=== PATIENT | female | born 1975 | race Caucasian/White ===

== ENCOUNTER 2018-07-28 10:26 | Emergency (ER) | payer OTHER, SELFPAY ==
[2018-07-28 10:31] VITALS: BP 132/82; PULSE 63; RESP 16; TEMP 36.6; O2SAT 100
--- NOTE | 2018-07-28 11:01 | ED_ITS ---
HPI - Chest Pain General Chief Complaint: Chest Pain Stated Complaint: tightness in chest Time Seen by Provider: 07/28/18 10:49 Source: patient Mode of arrival: ambulatory Limitations: no limitations History of Present Illness HPI narrative: patient is a 42-year-old female presents with a variety of complaints. She broke her left ankle in June while over in [place]. She was placed in a cast is for number of weeks. She was actually placed on Lovenox shots for the airplane ride back to [facility]. She has been going to physical therapy. She did not receive any surgery. His physical therapy noticed that her foot was slightly cooler. she feels like her left leg is cool from her knee to her foot. She does have some numbness and tingling. She has been using crutches. His she has also been having some chest pain off and on for about 1 week. It last for about 3-5 minutes. She feels like it is tight. Thought that it might be from crutches from her foot. She denies any shortness of breath. Related Data Home Medications Medication Instructions Recorded Confirmed Collagen 1 dose PO DAILY 07/28/18 07/28/18 Allergies Allergy/AdvReac Type Severity Reaction Status Date / Time No Known Allergies Allergy Uncoded 09/14/17 12:14 Review of Systems Review of Systems ROS Unobtainable: All systems reviewed & are unremarkable except as noted in HPI and below Cardiovascular Reports chest pain, Denies irregular heart rhythm, Denies lightheadedness, Denies palpitations, Denies dyspnea, Denies dyspnea on exertion and Denies orthopnea Respiratory Denies cough, Denies dyspnea, Denies dyspnea on exertion and Denies wheezing Gastrointestinal Gastrointestinal: Denies abdominal pain, Denies change in bowel habits, Denies diarrhea, Denies nausea and Denies vomiting Musculoskeletal Reports as per HPI, Denies back pain, Denies muscle weakness, Denies numbness and Denies tingling Integumentary/Breasts Denies pruritus, Denies erythema, Denies rash and Denies wounds Neurologic Denies numbness and Denies tingling Endocrine Denies palpitations Allergic/Immunologic Denies wheezing PFSH Medical History Closed left ankle fracture (Resolved) Social History Smoking Status: Never smoker Social History Smoking Status: Never smoker Exam Initial Vital Signs Initial Vital Signs: Vital Signs Temperature 97.9 F 07/28/18 10:31 Pulse Rate 63 07/28/18 10:31 Respiratory Rate 16 07/28/18 10:31 Blood Pressure 132/82 07/28/18 10:31 Pulse Oximetry 100 07/28/18 10:31 GENERAL: alert young female acute distress HEENT: Head atraumatic,EOMI, pupils reactive, face symmetric CARDIOVASCULAR: Regular rate and rhythm without murmurs, rubs or gallops. RESPIRATORY: Breath sounds equal bilaterally, no wheezes rales or rhonchi. ABDOMEN: Soft, nontender. Normoactive bowel sounds all 4 quadrants. No guarding or rebound. EXTREMITIES: Normal range of motion, no clubbing or edema. Neurovascularly intact - Left lower extremity is slight lateral swelling distal pedal pulse is present. No calf pain no calf swelling no erythema NEUROLOGICAL: Alert and oriented x4.Normal gait and speech. Cranial nerves II through XII grossly intact. SKIN: Warm, dry, no laceration, no petechiae, no rashes or lesions. Scores HEART Score Heart Score history: Slightly Suspicious Heart Score EKG: Normal Heart Score Age: < 45 years old Heart Score risk factors: No known risk factors Heart Score troponin: < or = to normal limit Heart Score Total: 0 PERC Score Age greater than or equal to 50 years: No Heart rate greater than or equal to 100 bpm: No Room Air O2 Sat less than 95%: No Unilateral leg swelling: No Recent trauma or surgery: Yes Hemoptysis: No Prior PE or DVT: No Hormone Use: No Total PERC Score: 1 Course Orders Ordered: ED Orders 07/28/18 11:00 Complete Blood Count AUTO DIFF Stat Comprehensive Metabolic Panel Stat D Dimer Stat Lipase Stat Troponin & CK Cardiac Panel Stat 07/28/18 11:07 XR ankle LT min 3V Stat 07/28/18 11:08 XR chest 2V Stat 07/28/18 11:46 US arterial duplex LE LT Stat Vital Signs - 8 hr 07/28/18 10:31 07/28/18 11:53 07/28/18 12:00 Temperature 97.9 F Pulse Rate 63 63 64 Respiratory Rate 16 12 Blood Pressure 132/82 Blood Pressure [Left Arm] 110/74 114/79 Pulse Oximetry 100 100 99 07/28/18 12:45 Temperature Pulse Rate 64 Respiratory Rate 12 Blood Pressure Blood Pressure [Left Arm] 114/82 Pulse Oximetry 99 MDM - Chest Pain Lab Data Attestation: I reviewed the patient's lab results. Result diagrams: 07/28/18 11:00 07/28/18 11:00 Lab Results 07/28/18 07/28/18 07/28/18 Range/Units 11:00 11:00 11:00 WBC 5.7 (4.5-11.0) X10^3/uL RBC 4.67 (4.0-5.2) X10^6/uL Hgb 11.9 L (12.0-16.0) g/dL Hct 37.1 (36-46) % MCV 79.5 L (80-100) fL MCH 25.6 L (26-34) PG MCHC 32.2 (30-36) % RDW 15.0 H (11.6-14.8) % Plt Count 199 (150-400) X10^3/uL Neut % (Auto) 67.5 (50-75) % Lymph % (Auto) 21.1 L (25-40) % Evangeline % (Auto) 8.8 (3-14) % Eos % (Auto) 1.8 L (2-4) % Baso % (Auto) 0.8 (0-2) % Neut # (Auto) 3800 (2201-3474) /uL Lymph # (Auto) 1200 (6705-5071) /uL Evangeline # (Auto) 500 (0-900) /uL Eos # (Auto) 100 (0-450) /uL Baso # (Auto) 0 (0-100) /uL D-Dimer 291 H (<230) ng/mL Sodium 140 (137-145) mmol/L Potassium 3.6 (3.4-5.1) mmol/L Chloride 102 (98-107) mmol/L Carbon Dioxide 27 (22-32) mmol/L BUN 11 (7-17) mg/dL Creatinine 0.70 (0.52-1.04) mg/dL Estimated GFR > 60.0 (>60) mL/min BUN/Creatinine Ratio 15.7 (6-22) Glucose 85 (70-100) mg/dL Calcium 9.5 (8.4-10.2) mg/dL Total Bilirubin 0.2 (0.2-1.3) mg/dL AST 18 (14-36) IU/L ALT 20 (9-52) IU/L Alkaline Phosphatase 64 (38-126) U/L Total Creatine Kinase 47 (30-135) U/L CK-MB (CK-2) TNP CK-MB (CK-2) Rel Index TNP Troponin I < 0.012 (0.01-0.034) ng/mL Total Protein 7.6 (6.3-8.2) g/dL Albumin 4.5 (3.5-5.0) g/dL Globulin 3.1 (1.7-4.1) g/dL Albumin/Globulin Ratio 1.5 (1.0-2.8) Lipase 197 (23-300) U/L Imaging Data Chest x-ray: Radiologist's impression: PROCEDURE: XR CHEST 2V INDICATIONS: chest pain TECHNIQUE: 2 views of the chest were acquired. COMPARISON: None. FINDINGS: Surgical changes and devices: None. Lungs and pleura: Lungs are clear. No pleural effusions or pneumothorax. Mediastinum: Mediastinal contours are normal. Heart size is normal. Bones and chest wall: No suspicious bony abnormalities. Soft tissues appear unremarkable. IMPRESSION: No acute cardiopulmonary disease process. Dictated by: Jackeline Flynn MD, PhD on 07/28/2018 at 11:28 left ankle xray: Radiologist's impression: PROCEDURE: XR ANKLE LT MIN 3V INDICATIONS: recent LEFT ANKLE fracture increased pain TECHNIQUE: 3 views of the ankle were acquired. COMPARISON: None. FINDINGS: Bones: No fractures or dislocations. Ankle mortise is normally aligned. No suspicious bony lesions. Soft tissues: No tibiotalar joint effusion. Achilles tendon appears normal. IMPRESSION: No acute trauma found. There is only a slight degree of i rregularity at the base of the lateral malleolus, potentially a site of prior injury. . Dictated by: Andrea Gudino M.D. on 07/28/2018 at 11:29 Arterial Left Lower Extremity: Radiologist's impression: PROCEDURE: XR ANKLE LT MIN 3V INDICATIONS: recent LEFT ANKLE fracture increased pain TECHNIQUE: 3 views of the ankle were acquired. COMPARISON: None. FINDINGS: Bones: No fractures or dislocations. Ankle mortise is normally aligned. No suspicious bony lesions. Soft tissues: No tibiotalar joint effusion. Achilles tendon appears normal. IMPRESSION: No acute trauma found. There is only a slight degree of irregularity at the base of the lateral malleolus, potentially a site of prior injury. . Dictated by: Andrea Gudino M.D. on 07/28/2018 at 11:29 ECG Data Attestation: I personally reviewed and interpreted this ECG as follows: Prior ECG tracings: not available for review Interpretation: normal sinus rhythm rate 58 TX interval [address] changes no T-wave inversions QTC 407 MDM Narrative Medical decision making narrative: the patient has been having ongoing left- sided chest pain for the about 1 week. It is tightness lasting just a few minutes. This is likely from crutches. She is low risk for PE and has the negative D-dimer. She was on Lovenox for the airplane ride in the with a number of weeks ago. She is not been having significant shortness of breath. Her left ankle has a palpable pulse it is warm to touch. Arterial Doppler and x-ray confirmed as no acute process. At this time recommend continuing outpatient physical therapy and follow-up. Discharge Plan Departure Patient Disposition: Home Clinical Impression: Atypical chest pain Discharge Date/Time: 07/28/18 13:04 Interventions: ED Discharge Assessment Last Done: 07/28/18 13:03 Instructions: DI for Atypical Chest Pain Activity Restrictions/Additional Instructions: *You have been diagnosed with atypical chest *What to do: chest pain is likely from using crutches. X-ray was within normal limits. Ankle x-ray shows healing fracture almost completely healed and good arterial flow. Unlikely to have blood clot in the vein. *Continue to take medications as directed *Follow up with your primary care provider in 2-3 days *Return to ER if you should have Worsening chest pain, ankle swelling calf pain shortness of breath or any new, worsening or concerning symptoms Prescriptions: No Action Collagen 1 dose PO DAILY RF: 0
--- NOTE | 2018-07-28 11:07 | DI.RAD.S_ITS ---
PROCEDURE: XR ANKLE LT MIN 3V INDICATIONS: recent LEFT ANKLE fracture increased pain TECHNIQUE: 3 views of the ankle were acquired. COMPARISON: None. FINDINGS: Bones: No fractures or dislocations. Ankle mortise is normally aligned. No suspicious bony lesions. Soft tissues: No tibiotalar joint effusion. Achilles tendon appears normal. IMPRESSION: No acute trauma found. There is only a slight degree of irregularity at the base of the lateral malleolus, potentially a site of prior injury. . Dictated by: Andrea Gudino M.D. on 07/28/2018 at 11:29 Approved by: Andrea Gudino M.D. on 07/28/2018 at 11:30
--- NOTE | 2018-07-28 11:08 | DI.RAD.S_ITS ---
PROCEDURE: XR CHEST 2V INDICATIONS: chest pain TECHNIQUE: 2 views of the chest were acquired. COMPARISON: None. FINDINGS: Surgical changes and devices: None. Lungs and pleura: Lungs are clear. No pleural effusions or pneumothorax. Mediastinum: Mediastinal contours are normal. Heart size is normal. Bones and chest wall: No suspicious bony abnormalities. Soft tissues appear unremarkable. IMPRESSION: No acute cardiopulmonary disease process. Dictated by: Jackeline Flynn MD, PhD on 07/28/2018 at 11:28 Approved by: Jackeline Flynn MD, PhD on 07/28/2018 at 11:29
--- NOTE | 2018-07-28 11:09 | PC.NURSE ---
patient presents with intermittent left chest pressure. Denies SOB feels like I worked out muscle sorness Patient broke left ankle 06/05 in [place] spent month in hard cast had removed. Was on 4 days of lovenox while flying back to [place]. Patient presents with some concerns of decrease pulses and coolness to left foot. Positive pulses present and do not appreciate temperature change.
[2018-07-28 11:16] LABS: Add Manual Diff / Slide Review NO; Basophils Absolute Auto 0 /uL (0-100); Basophils Percent Auto 0.8 % (0-2); Eosinophils Absolute Auto 100 /uL (0-450); Eosinophils Percent Auto 1.8 % (2-4); Hematocrit 37.1 % (36-46); Hemoglobin 11.9 g/dL (12.0-16.0); Lymphocytes Absolute Auto 1200 /uL (1100-4500); Lymphocytes Percent Auto 21.1 % (25-40); Mean Corpuscular HGB Conc 32.2 % (30-36); Mean Corpuscular Hemoglobin 25.6 PG (26-34); Mean Corpuscular Volume 79.5 fL (80-100); Monocytes Absolute Auto 500 /uL (0-900); Monocytes Percent Auto 8.8 % (3-14); Neutrophils Absolute Auto 3800 /uL (1500-7000); Neutrophils Percent Auto 67.5 % (50-75); Platelet Count 199 X10^3/uL (150-400); Red Blood Cell Count 4.67 X10^6/uL (4.0-5.2); White Blood Cell Count 5.7 X10^3/uL (4.5-11.0)
[2018-07-28 11:20] LABS: D Dimer 291 ng/mL (<230)
[2018-07-28 11:25] LABS: Alanine Aminotransferase 20 IU/L (9-52); Albumin 4.5 g/dL (3.5-5.0); Albumin Globulin Ratio 1.5 (1.0-2.8); Alkaline Phosphatase 64 U/L (38-126); Aspartate Aminotransferase 18 IU/L (14-36); BUN Creatinine Ratio 15.7 (6-22); Bilirubin Total 0.2 mg/dL (0.2-1.3); Blood Urea Nitrogen 11 mg/dL (7-17); Calcium 9.5 mg/dL (8.4-10.2); Carbon Dioxide 27 mmol/L (22-32); Chloride 102 mmol/L (98-107); Creatine Kinase 47 U/L (30-135); Estimated Glomerular Filt Rate > 60.0 mL/min (>60); Globulin 3.1 g/dL (1.7-4.1); Glucose 85 mg/dL (70-100); HEMOLYSIS < 15 (0-50); Lipase 197 U/L (23-300); Potassium 3.6 mmol/L (3.4-5.1); Sodium 140 mmol/L (137-145); Total Protein 7.6 g/dL (6.3-8.2)
[2018-07-28 11:37] LABS: Troponin I < 0.012 ng/mL (0.01-0.034)
--- NOTE | 2018-07-28 11:46 | DI.US.S_ITS ---
PROCEDURE: US ARTERIAL DUPLEX LE LT INDICATIONS: RECENT FRACTURE, DECREASED PULSE TECHNIQUE: Color and pulse Doppler interrogation was performed of the left lower extremity arterial system, with image documentation. COMPARISON: None. FINDINGS: Normal-appearing, triphasic and biphasic waveforms are seen. The flow velocities are likewise within normal limits. No focal area of increased flow velocity is seen to suggest a focal stenosis. Antegrade flow is confirmed to the distal aspects of each of the trifurcation vessels. No significant be scale abnormality is seen. IMPRESSION: No hemodynamically significant stenosis can be seen. Note: Concordant preliminary findings given by the sales and marketing engineer upon the completion of the examination to Dr. Gustafson at 12:18 PM [place] time on July 28, 2018. Dictated by: Ady Halie M.D. on 07/28/2018 at 11:28 Approved by: Ady Haile M.D. on 07/28/2018 at 11:30
[2018-07-28 11:53] VITALS: BP 110/74; PULSE 63; O2SAT 100
[2018-07-28 12:00] VITALS: BP 114/79; PULSE 64; RESP 12; O2SAT 99
[2018-07-28 12:45] VITALS: BP 114/82; PULSE 64; RESP 12; O2SAT 99
== END 2018-07-28 13:04 | disposition home or self-care (01) ==
PROVIDERS: Emergency Provider Emergency Medicine
DX: R07.89 Other chest pain (principal)
CPT/HCPCS: 36591; 71046; 73610; 80053; 82550; 83690; 84484; 85025; 85379; 93005; 93010; 93926; 99283; 99285

== ENCOUNTER → 2020-11-02 17:49 | Outpatient (CLI) | payer OTHER, SELFPAY ==
[2020-11-02 18:50] LABS: Influenza A - CEPHEID Flu A NEGATIVE (NEGATIVE); Influenza B - CEPHEID Flu B NEGATIVE (NEGATIVE)
[2020-11-02 18:56] LABS: Add Manual Diff / Slide Review NO; Basophils Absolute Auto 0 /uL (0-100); Basophils Percent Auto 0.6 % (0-2); Eosinophils Absolute Auto 0 /uL (0-450); Eosinophils Percent Auto 0.9 % (2-4); Hemoglobin 14.2 g/dL (12.0-16.0); Lymphocytes Absolute Auto 900 /uL (1100-4500); Lymphocytes Percent Auto 26.4 % (25-40); Mean Corpuscular HGB Conc 33.8 % (30-36); Mean Corpuscular Hemoglobin 29.8 PG (26-34); Mean Corpuscular Volume 88.3 fL (80-100); Monocytes Absolute Auto 500 /uL (0-900); Monocytes Percent Auto 12.6 % (3-14); Neutrophils Absolute Auto 2100 /uL (1500-7000); Neutrophils Percent Auto 59.5 % (50-75); Platelet Count 189 X10^3/uL (150-400); Red Blood Cell Count 4.76 X10^6/uL (4.0-5.2); Red Cell Distribution Width 13.4 % (11.6-14.8); White Blood Cell Count 3.6 X10^3/uL (4.5-11.0)
[2020-11-02 19:03] LABS: COVID19 -Nasal RAPID POSITIVE (Negative)
[2020-11-02 19:05] LABS: Alanine Aminotransferase 16 IU/L (<35); Albumin 4.7 g/dL (3.5-5.0); Albumin Globulin Ratio 1.3 (1.0-2.8); Alkaline Phosphatase 61 U/L (38-126); Aspartate Aminotransferase 25 IU/L (14-36); Bilirubin Total 0.3 mg/dL (0.2-1.3); Blood Urea Nitrogen 9 mg/dL (7-17); Calcium 9.8 mg/dL (8.4-10.2); Carbon Dioxide 27 mmol/L (22-32); Chloride 101 mmol/L (98-107); Estimated Glomerular Filt Rate > 60.0 mL/min (>60); Globulin 3.7 g/dL (1.7-4.1); Glucose 97 mg/dL (70-100); HEMOLYSIS 40 (0-50); Potassium 4.3 mmol/L (3.4-5.1); Sodium 137 mmol/L (137-145); Total Protein 8.4 g/dL (6.3-8.2)
[2020-11-02 19:22] LABS: Procalcitonin 0.08 ng/mL (<0.5)
== END ==
PROVIDERS: Visit Provider Student in an Organized Health Care Education/Training Program
DX: U07.1 COVID-19 (principal); R05 Cough; R53.83 Other fatigue; R07.1 Chest pain on breathing
CPT/HCPCS: 36415; 80053; 84145; 85025; 87502; 87635

== ENCOUNTER → 2020-11-02 18:15 | Outpatient (CLI) | payer OTHER, SELFPAY ==
--- NOTE | 2020-11-02 18:18 | DI.RAD.S_ITS ---
PROCEDURE: XR CHEST 2V INDICATIONS: cough, chest pain on inspiration, fatigue TECHNIQUE: 2 views of the chest were acquired. COMPARISON: [facility], CR, XR CHEST 2V, 07/28/2018, 11:13. FINDINGS: Surgical changes and devices: None. Lungs and pleura: Lungs are clear. No pleural effusions or pneumothorax. Mediastinum: Mediastinal contours are normal. Heart size is normal. Bones and chest wall: No suspicious bony abnormalities. Soft tissues appear unremarkable. IMPRESSION: No acute cardiopulmonary abnormality. Dictated by: Jaun Chandler M.D. on 11/02/2020 at 18:38 Approved by: Jaun Chandler M.D. on 11/02/2020 at 18:39
== END ==
PROVIDERS: Referring Provider Student in an Organized Health Care Education/Training Program; Visit Provider Student in an Organized Health Care Education/Training Program
DX: U07.1 COVID-19 (principal); R07.1 Chest pain on breathing; R53.83 Other fatigue; R05 Cough
CPT/HCPCS: 36415; 71046; 80053; 84145; 85025; 87502; 87635

== ENCOUNTER → 2021-04-02 08:13 | Outpatient (CLI) | payer OTHER, SELFPAY ==
--- NOTE | 2021-04-02 | DI.US.S_ITS ---
PROCEDURE: US CAROTID DOPPLER BI INDICATIONS: Occlusion and stenosis of unspecified carotid rom TECHNIQUE: Color and pulse Doppler interrogation was performed of both carotid systems, with image documentation and velocity measurements. COMPARISON: None. FINDINGS: Stenosis calculations are based on SRU (Society of Radiologists in Ultrasound) criteria. Right side: Brachial blood pressure: 119/75 mm Hg. Common carotid artery peak systolic velocity: 111 cm/sec. Internal carotid artery peak systolic velocity: 122 cm/sec. Internal carotid artery end diastolic velocity: 46 cm/sec. External carotid artery peak systolic velocity: 86 cm/sec. ICA/CCA peak systolic ratio: 1.1 . Jackson scale imaging description: No visualized plaque. Percent internal carotid artery stenosis: No hemodynamically significant stenosis . Vertebral artery: Flow direction is antegrade. Left side: Brachial blood pressure: 114/76 mm Hg. Common carotid artery peak systolic velocity: 127 cm/sec. Internal carotid artery peak systolic velocity: 131 cm/sec. Internal carotid artery end diastolic velocity: 59 cm/sec. External carotid artery peak systolic velocity: 109 cm/sec. ICA/CCA peak systolic ratio: 1.1 . Jackson scale imaging description: Minimal plaque at the bifurcation. Percent internal carotid artery stenosis: Less than 50% . Vertebral artery: Flow direction is antegrade. IMPRESSION: 1. Less than 50% stenosis of the left internal carotid artery. Dictated by: Sharon Freed M.D. on 04/02/2021 at 15:18 Approved by: Sharon Freed M.D. on 04/02/2021 at 15:19
== END ==
PROVIDERS: PCP Physician Assistant Medical; Referring Provider Physician Assistant; Visit Provider Physician Assistant
DX: I65.22 Occlusion and stenosis of left carotid artery (principal)
CPT/HCPCS: 93880

== ENCOUNTER 2024-11-27 20:27 | Emergency (ER) | payer OTHER, SELFPAY ==
[2024-11-27 20:36] VITALS: BP 124/75; PULSE 85; RESP 18; TEMP 37.1; O2SAT 100; BMI 21.4
[2024-11-27 20:50] LABS: Appearance Urine UA Clear; Color Urine UA Orange; Urine Volume 10mL (spun)
[2024-11-27 20:56] LABS: Bacteria Urine Moderate (10-30); Culture Indicated Urine Specimen Cultured; RBC Urine 0-1/HPF (0-5/HPF); Squamous Epithelial Cell Urine 0-1 /HPF (0-5/HPF); WBC Urine 10-30/HPF (0-5/HPF); White Blood Cell Casts Urine 0-1/LPF
--- NOTE | 2024-11-27 21:38 | ED_ITS ---
HPI - Female Genitourinary General Chief complaint: Urogenital-Female Stated complaint: Urinary Symptoms Time Seen by Provider: 11/27/24 20:29 Source: patient Mode of arrival: Ambulatory History of Present Illness HPI Narrative: 48-year-old female complains of 4 days' duration of painful urination, frequency of urination. Some left-sided flank discomfort. No nausea or vomiting. No fevers or chills. No history of known kidney stones. No injury or trauma. No recent antibiotics for urine infection or other illnesses. Related Data Previous Rx's ?Medication ?Instructions ?Recorded cefdinir 300 mg capsule 300 mg PO BID 10 days #20 ca ps 11/27/24 Allergies Allergy/AdvReac Type Severity Reaction Status Date / Time No Known Drug Allergies Allergy Verified 11/27/24 20:36 Patient History Medical History (Updated 11/27/24 @ 21:46 by Hossein Magana MD) Rosacea (~1998) Closed left ankle fracture Surgical History (Updated 02/23/22 @ 20:47 by Naomi Holley) Anesthesia Ovarian cyst (~02/2004) Fibroid uterus (~09/2017) Family History (Updated 02/23/22 @ 20:48 by Naomi Holley) Mother Lung cancer Grandfather Cancer Exam Narrative Exam Narrative: GENERAL: Well-developed patient, in mild distress. HEAD: Atraumatic. Normocephalic. EYES: Pupils equal round and reactive. Extraocular motions intact. No scleral icterus. No injection or drainage. ENT: Nose without bleeding, purulent drainage. Throat without erythema, tonsillar hypertrophy or exudate. Airway patent. NECK: Trachea midline. Non tender CARDIOVASCULAR: Regular rate and rhythm without murmurs, gallops, or rubs. RESPIRATORY: Clear to auscultation. Breath sounds equal bilaterally. No wheezes, rales, or rhonchi. GASTROINTESTINAL: Abdomen soft, non-tender, nondistended. EXTREMITIES: No edema or joint tenderness. BACK: Nontender without deformity or crepitance. No flank tenderness. NEURO: AOx3. Motor functions grossly nonfocal. SKIN: No rash or erythema of visible areas Initial Vital Signs Initial Vital Signs: Vital Signs Temperature 98.7 F 11/27/24 20:36 Pulse Rate 85 11/27/24 20:36 Respiratory Rate 18 11/27/24 20:36 Blood Pressure 124/75 11/27/24 20:36 Pulse Oximetry 100 11/27/24 20:36 Oxygen Delivery Method Room Air 11/27/24 20:36 Course Orders Ordered: Discontinued Medications Cefdinir (Cefdinir 300 Mg Capsule) 300 mg PO NOW ONE Stop: 11/27/24 21:46 Last Admin: 11/27/24 21:55 Dose: 300 mg Documented By: BEKAH Ondansetron HCl (Ondansetron 4 Mg/2 Ml Inj) 4 mg IV NOW PRN PRN Reason: Nausea And Vomiting Ondansetron HCl (Ondansetron 4 Mg Odt) 4 mg PO NOW PRN PRN Reason: Nausea And Vomiting Vital Signs Vital signs: Vital Signs - 8 hr 11/27/24 20:36 Temperature 98.7 F Pulse Rate 85 Respiratory Rate 18 Blood Pressure 124/75 Pulse Oximetry 100 Oxygen Delivery Method Room Air MDM - Female Genitourinary Lab Data Attestation: I reviewed the patient's lab results. Lab results narrative: Urinalysis shows rare squamous cells, moderate bacteria, presence of white cells, urine culture triggered. Labs: Lab Results 11/27/24 Range/Units 20:42 Urine Color [place] Urine Appearance Clear Urine pH TNP Ur Specific [place] TNP Urine Protein TNP Urine Glucose (UA) TNP Urine Ketones TNP Urine Occult Blood TNP Urine Nitrate TNP Urine Bilirubin TNP Urine Urobilinogen TNP Ur Leukocyte Esterase TNP Urine RBC 0-1/hpf (0-5/HPF) Urine WBC 10-30/hpf H (0-5/HPF) Ur Squamous Epith Cells 0-1 /hpf (0-5/HPF) Urine Bacteria Moderate (10-30) H (None) WBC Casts 0-1/lpf (None) Ur Culture Indicated? Specimen cultured Vol Urine Centrifuged 10ml (spun) MDM Narrative Medical decision making narrative: 48-year-old female with dysuria and frequency of urination for 4 days, no fever on triage. Some left-sided flank discomfort, no CVA tenderness on exam. Afebrile, sirs screen negative. Urinalysis suspicious for infection, urine culture was triggered by protocol. We will give 1st dose oral cefdinir an tibiotic, prescription sent to her pharmacy. Encouraged to drink plenty of fluids. [id number] pain medications as needed. Discharged home. Return precautions discussed. Discharge Plan Departure Patient Disposition: Home Clinical Impression: Urinary tract infection Instructions: DI for Urinary Tract Infection (UTI) Activity Restrictions/Additional Instructions: Painful frequent urination. No history of kidney stones. Urinalysis with bacteria and inflammatory cells, urine culture was triggered by protocol. We will start antibiotics, 1st dose oral antibiotic cefdinir given in the emergency department, prescription for further antibiotics sent to your pharmacy. Take antibiotics as directed. Drink plenty of fluids. Take Tylenol and or Motrin as needed for pain control. Recheck symptoms if not improving in the next couple of days. Return to this/nearest emergency department for any change worsening symptoms or any concerns prior. Prescriptions: New cefdinir 300 mg capsule 300 mg PO BID 10 Days Qty: 20 0RF Referrals: Tracy Fuentes PA-C [Primary Care Provider, Medical] Stand Alone Forms: Patient Portal/API
[2024-11-27] MEDS: CEFDINIR 300 MG CAPSULE PO (21:55)
[2024-11-27 22:04] VITALS: BP 127/76; PULSE 84; RESP 15; O2SAT 98
== END 2024-11-27 22:08 | disposition home or self-care (01) ==
PROVIDERS: Emergency Provider Emergency Medicine; PCP Physician Assistant Medical
DX: N39.0 Urinary tract infection, site not specified (principal)
CPT/HCPCS: 81001; 87086; 99283